=== PATIENT | female | born 1970 | race Two or more races ===

== ENCOUNTER 2019-09-27 22:51 | Emergency (ER) | payer MEDICARE, MEDICAID ==
[~2019-09-27] VITALS: Ht 167.6 cm; Wt 81.6 kg
[~2019-09-27 22:51] MED LIST: BUS10T PO; LEVE500T32 PO; OMEP20CA74 OR
[2019-09-28] MEDS ORDERED: ONDANSETRON HCL 4 MG/2 ML VIAL IV ONE (00:15)
[2019-09-28] MEDS ORDERED: HYDROmorphone HCL 2 MG/ML VL IV ONE (00:15)
[2019-09-28 01:01] LABS: Basophils # (auto) 0 10 ^3/uL (0-0.2); Basophils % (auto) 0.5 % (0.0-2.0); Eosinophils # (auto) 0.4 10 ^3/uL (0-0.8); Eosinophils % (auto) 4.3 % (0.0-7.0); Hematocrit 44.1 % (36.0-46.0); Hemoglobin 14.5 g/dL (12.2-16.2); Lymphocytes # (auto) 2.9 10 ^3/uL (0.4-5.4); Lymphocytes % (auto) 31.7 % (10.0-50.0); Mean Corpuscular Hemoglobin 29.4 pg (28.0-32.0); Mean Corpuscular Hgb Conc. 32.8 g/dL (32.0-36.0); Mean Corpuscular Volume 89.6 fL (80.0-100.0); Monocytes # (auto) 0.6 10 ^3/uL (0-1.3); Neutrophils # (auto) 5.2 10 ^3/uL (1.6-8.6); Neutrophils % (auto) 56.5 % (37.0-80.0); Nucleated Red Blood Cells % 0.1 %; Platelet Count (auto) 250 10^3/uL (140-450); Red Blood Cells 4.92 10^6/uL (4.0-5.20); White Blood Cell 9.2 10^3/uL (4.4-10.8)
[2019-09-28] MEDS ORDERED: LORazepam 2MG/ML-1ML VIAL IV ONE (01:15)
[2019-09-28 01:16] LABS: INR 0.96 (0.9-1.15); Partial Thromboplastin Time 25.4 sec (23.0-31.2)
[2019-09-28 01:39] LABS: Albumin 3.8 g/dL (3.4-5.0); Anion Gap 5 (5-15); Blood Urea Nitrogen 19 mg/dL (7-18); Calcium 8.4 mg/dL (8.5-10.1); Carbon Dioxide 25 mmol/L (21-32); Chloride 109 mmol/L (98-107); Glucose 101 mg/dL (74-106); Magnesium 2.5 mg/dL (1.6-2.6); Potassium 3.9 mmol/L (3.5-5.1); Sodium 139 mmol/L (136-145)
[2019-09-28 01:46] LABS: Alanine Aminotransferase 242 U/L (13-56); Alkaline Phosphatase 235 U/L (45-117); Aspartate Aminotransferase 120 U/L (15-37); BUN/Creatinine Ratio 27.9; Bilirubin, Total 0.5 mg/dL (0.2-1.0); Creatine Kinase IFCC 91 U/L (26-192); GFR African American 119 mL/min; GFR Non-African American 99 mL/min; Total Protein 7.7 g/dL (6.4-8.2)
[2019-09-28 02:46] LABS: Urine Bacteria FEW /hpf (None Seen); Urine Blood Negative /uL (Negative); Urine Mucus FEW (None Seen); Urine Specific Gravity 1.025 (1.001-1.035); Urine WBC 2 /hpf (0 - 5)
[2019-09-28 03:00] VITALS: BP 125/80
[2019-09-28] MEDS ORDERED: HYDROcodone-ACET 5/325MG TAB PO ONE (03:45)
== END 2019-09-28 04:22 | disposition home or self-care (01) ==
LOC: EDBD 22:51 → ER 22:53
DX: U07.1 COVID-19 (principal); K74.60 Unspecified cirrhosis of liver; R51 Headache; F12.10 Cannabis abuse, uncomplicated; I10 Essential (primary) hypertension; F41.9 Anxiety disorder, unspecified; Z90.710 Acquired absence of both cervix and uterus
CPT/HCPCS: 36415; 70450; 71045; 80053; 81001; 82550; 82728; 83735; 83880; 84484; 85025; 85379; 85610; 85730; 96374; 96375; 99285; C9803; J1170; J2405; U0003; 93005

== ENCOUNTER 2022-07-07 23:10 | Emergency (ER) | payer OTHER ==
[~2022-07-07] VITALS: Ht 154.9 cm; Wt 68.2 kg
[2022-07-07 23:20] VITALS: BP 181/115
== END 2022-07-08 01:15 | disposition left against medical advice (07) ==
LOC: EDBD 23:10 → ER 23:10
DX: I10 Essential (primary) hypertension (principal); Z53.21 Procedure and treatment not carried out due to patient leaving prior to being seen by health care provider

== ENCOUNTER 2024-12-25 10:53 | Emergency (ER) | payer OTHER ==
[~2024-12-25] VITALS: Ht 170.2 cm; Wt 82.0 kg
[~2024-12-25 10:53] MED LIST changes: -LEVE500T32 PO; +LEVE500T40 PO
[2024-12-25 11:20] VITALS: TEMP 98.3
[2024-12-25] MEDS: ONDANSETRON ODT 4 MG TAB PO ONE (11:22)
[2024-12-25 11:40] LABS: Hematocrit 43.7 % (36.0-46.0); Hemoglobin 14.4 g/dL (12.2-16.2); Mean Corpuscular Hemoglobin 28.7 pg (28.0-32.0); Mean Corpuscular Volume 87.1 fL (80.0-100.0); Nucleated Red Blood Cells % 0.1 %
[2024-12-25 11:42] LABS: Potassium 4.1 mmol/L (3.5-5.1); Sodium 142 mmol/L (136-145)
[2024-12-25 11:43] LABS: Anion Gap 9 (5-15); Carbon Dioxide 24 mmol/L (20-31)
[2024-12-25 11:44] LABS: Calcium 8.8 mg/dL (8.7-10.4)
[2024-12-25 11:49] LABS: BUN/Creatinine Ratio 16.4 (10.0-20.0); Blood Urea Nitrogen 11 mg/dL (9-23); Glucose 90 mg/dL (74-106)
[2024-12-25 11:50] LABS: Chloride 109 mmol/L (98-107)
--- NOTE | 2024-12-25 11:52 | ED.PDOC ---
History of Present Illness HPI Comments 54 y.o female presents to the ED for evaluation of elevated blood pressure. The patient reported being startled awake by a home break in today, after which she developed a headache and SOB. Her presenting BP was 220/160. She stated she took her prescribed HTN medication this morning. The patient denied any associated assault,LOC or physical trauma Chief Complaint: High Blood Pressure Time Seen by MD: 11:40 Primary Care Provider: saw Ornelas Notes: Nurses Notes, Medications, Allergies Allergies: Coded Allergies: Haloperidol (Unverified Allergy, Severe, 10/25/14) Lorazepam (Unverified Allergy, Severe, 10/25/14) Morphine (Verified Allergy, Unknown, 12/25/24) Home Meds Active Scripts Omeprazole (PRILOSEC) 20 Mg Cap, 40 MG OR BID, #60 MG Prov:BONIFACIO MARCUS MD 12/16/13 Reported Medications Levetiracetam (Keppra) 500 Mg Tab, 500 MG PO DAILY, TAB 10/25/14 Buspirone Hcl (Buspar) 10 Mg Tab, 10 MG PO PRN, TAB 02/23/13 Information Source: Patient Mode of Arrival: EMS Severity: Moderate Timing: Minutes Duration: Since onset Past Medical History PAST MEDICAL HISTORY: Anxiety, HTN, Liver, PUD, Seizures Surgical History: Hysterectomy CLIENT RETENTION SPECIALIST History: Endometriosis Family History Family History: Reviewed,noncontributory to illness Social History Smoker: Non-Smoker Alcohol: Heavy Drugs: Marijuana Lives In: Home Constitutional: denies: chills, diaphoresis, fatigue, fever, malaise, sweats, weakness, others EENTM: denies: blurred vision, double vision, ear bleeding, ear discharge, ear drainage, ear pain, ear ringing, eye pain, eye redness, hearing loss, mouth pain, mouth swelling, nasal discharge, nose bleeding, nose congestion, nose pain, photophobia, tearing, throat pain, throat swelling, voice changes, others Respiratory: reports: SOB at rest, shortness of breath, SOB with excertion; denies: cough, hemoptysis, orthopnea, stridor, wheezing, others Cardiovascular: denies: chest pain, dizzy spells, diaphoresis, Dyspnea on exertion, edema, irregular heart beat, left arm pain, lightheadedness, palpitations, PND, syncope, others Gastrointestinal: denies: abdomen distended, abdominal pain, blood streaked bowels, constipated, diarrhea, dysphagia, difficulty swallowing, hematemesis, melena, nausea, poor appetite, poor fluid intake, rectal bleeding, rectal pain, vomiting, others Genitourinary: denies: abnormal vagina bleeding, burning, dyspareunia, dysuria, flank pain, frequency, hematuria, incontinence, pain, , vagina discharge, urgency, others Neurological: reports: headache; denies: dizziness, fainting, left sided numbness, left sided weakness, numbness, paresthesia, pre-existing deficit, right sided numbness, right sided weakness, seizure, speech problems, tingling, tremors, weakness, others Musculoskeletal: denies: back pain, gout, joint pain, joint swelling, muscle pain, muscle stiffness, neck pain, others Integumetry: denies: bruises, change in color, change in hair/nails, dryness, laceration, lesions, lumps, rash, wounds, others Allergic/Immunocompromised: denies: Difficulty Healing, Frequent Infections, Hives, Itching, others Hematologic/Lymphatic: denies: anemia, blood clots, easy bleeding, easy bruising, swollen glands, others Endocrine: denies: excessive hunger, excessive sweating, excessive thirst, excessive urination, flushing, intolerance to cold, intolerance to heat, unexplained weight gain, unexplained weight loss, others Psychiatric: denies: anxiety, bipolar disorder, depression, hopeless, panic disorder, schizophrenia, sleepless, suicidal, others All Other Systems: Reviewed and Negative Physical Exam General Appearance: Moderate Distress HEENT: Normal ENT Inspection, Pharynx Normal, TMs Normal Neck: Full Range of Motion, Non-Tender, Normal, Normal Inspection Respiratory: Chest Non-Tender, Lungs Clear, No Accessory Muscle Use, No Respiratory Distress, Normal Breath Sounds Cardiovascular: No Edema, No JVD, No Murmur, No Gallop, Normal Peripheral Pulses, Regular Rate/Rhythm Breast Exam: Deferred Gastrointestinal: No Organomegaly, Non Tender, No Pulsatile Mass, Normal Bowel Sounds, Soft Genitalia: Deferred Pelvic: Deferred Rectal: Deferred Extremities: No calf tenderness, Normal capillary refill, Normal inspection, Normal range of motion, Non-tender, No pedal edema Musculoskeletal : Apperance: Normal Neurologic: Alert, stone carriage operator II-XII nml as Tested, No Motor Deficits, Normal Affect, Normal Mood, No Sensory Deficits Cerebellar Function: Normal Reflexes: Normal Skin: Dry, Normal Color, Warm Peripheral Pulses: 3+ Radial (R), 3+ Radial (L) Lymphatic: No Adenopathy Was a procedure done? Was a procedure done?: No Differential Dx Considerations may include: HTN essential, HTN accelerated X-Ray, Labs, Meds, VS Vital Signs Date Time Temp Pulse Resp B/P (MAP) Pulse Ox O2 Delivery O2 Flow Rate FiO2 12/25/24 12:50 50 20 136/76 (96) 99 12/25/24 12:50 136/76 12/25/24 11:21 191/103 12/25/24 11:20 98.3 64 18 191/103 (132) 94 98.3 12/25/24 11:20 Room Air* 0 21 12/25/24 11:06 98.3 87 18 220/160 98 98.3 Lab Test 12/25/24 11:12 Range/Units White Blood Count 6.3 4.4-10.8 10^3/uL Red Blood Count 5.01 4.0-5.20 10^6/uL Hemoglobin 14.4 12.2-16.2 g/dL Hematocrit 43.7 36.0-46.0 % Mean Corpuscular Volume 87.1 80.0-100.0 fL Mean Corpuscular Hemoglobin 28.7 28.0-32.0 pg Mean Corpuscular Hemoglobin Concent 32.9 32.0-36.0 g/dL Red Cell Distribution Width 14.2 11.8-14.3 % Platelet Count 237 140-450 10^3/uL Mean Platelet Volume 9.5 6.9-10.8 fL Neutrophils (%) (Auto) 55.3 37.0-80.0 % Lymphocytes (%) (Auto) 35.8 10.0-50.0 % Monocytes (%) (Auto) 4.6 0.0-12.0 % Eosinophils (%) (Auto) 4.0 0.0-7.0 % Basophils (%) (Auto) 0.3 0.0-2.0 % Neutrophils # (Auto) 3.5 1.6-8.6 10 ^3/uL Lymphocytes # (Auto) 2.3 0.4-5.4 10 ^3/uL Monocytes # (Auto) 0.3 0-1.3 10 ^3/uL Eosinophils # (Auto) 0.2 0-0.8 10 ^3/uL Basophils # (Auto) 0 0-0.2 10 ^3/uL Nucleated Red Blood Cells 0.1 % Sodium Level 142 136-145 mmol/L Potassium Level 4.1 3.5-5.1 mmol/L Chloride Level 109 H 98-107 mmol/L Carbon Dioxide Level 24 20-31 mmol/L Anion Gap 9 5-15 Blood Urea Nitrogen 11 9-23 mg/dL Creatinine 0.67 0.550-1.02 mg/dL Glomerular Filtration Rate Calc 105 >90 mL/min BUN/Creatinine Ratio 16.4 10.0-20.0 Serum Glucose 90 74-106 mg/dL Calcium Level 8.8 8.7-10.4 mg/dL Troponin I High Sensitivity < 3 L </=34 ng/L Current Medications Medications (Trade) Dose Ordered Sig/Sonja Route Start Time Stop Time Status Last Admin Clonidine HCl (Catapres Tablet) 0.2 mg ONCE ONCE PO 12/25/24 11:15 12/25/24 11:16 DC 12/25/24 11:21 Ondansetron HCl (Zofran Po) 4 mg ONCE ONCE PO 12/25/24 11:15 12/25/24 11:16 DC 12/25/24 11:22 Patient alert. She is anxious. Vitals stable. Answering all questions. Moving all extremities. No leg swelling. Blood pressure elevated. Was given clonidine. Was given Zofran. Cardiac marker within normal limits. Explained to the patient she will be admitted for further studies. Continue monitoring. Time of 1ST Reevaluation: 11:50 Reevaluation 1ST: Unchanged Patient Education/Counseling: Diagnosis, Treatment, Prognosis Family Education/Counseling: No Family Present SEPSIS Sepsis Screen Date sepsis recognized/suspect: Dec 25, 2024 Time Sepsis recognized/suspect: 1054 Recent Procedure: No On Antibiotic Therapy: No Respiratory Rate >20: No Heart Rate >90: No Temp<36 C (96.8 F) or >38.3 C: No SBP <90 or MAP <65 mmHG: No New Acute Mental Status Change: No Is the patient on CPAP, BIPAP,: No Physician Orders Urinalysis (12/25/24 11:02) Vital Signs Date Time Temp Pulse Resp B/P (MAP) Pulse Ox O2 Delivery O2 Flow Rate FiO2 12/25/24 12:50 50 20 136/76 (96) 99 12/25/24 12:50 136/76 12/25/24 11:21 191/103 12/25/24 11:20 98.3 64 18 191/103 (132) 94 98.3 12/25/24 11:20 Room Air* 0 21 12/25/24 11:06 98.3 87 18 220/160 98 98.3 Laboratory Tests Test 12/25/24 11:12 White Blood Count 6.3 10^3/uL (4.4-10.8) Medications Medications Dose Ordered Sig/Sonja Route Start Time Stop Time Status Last Admin Dose Admin Clonidine HCl 0.2 mg ONCE ONCE PO 12/25/24 11:15 12/25/24 11:16 DC 12/25/24 11:21 Ondansetron HCl 4 mg ONCE ONCE PO 12/25/24 11:15 12/25/24 11:16 DC 12/25/24 11:22 Departure 1 Departure Time of Disposition: 16:24 Impression: Primary Impression: Hypertensive urgency Additional Impression: Chest pain Qualified Codes: R07.9 - Chest pain, unspecified Disposition: ADMITTED INPATIENT Admit to: Med Surg Condition: Guarded Critical Care Note Critical Care Time?: No Stability Stability form required: No I personally scribed for MEAGHAN KIRBY MD ([email or web address]) on 12/25/24 at 11:52. Electronically submitted by Yina Nichole ([facility]). MEAGHAN KIRBY MD Dec 25, 2024 11:52
[2024-12-25 12:50] VITALS: BP 136/76; PULSE 50; RESP 20; O2SAT 99
== END 2024-12-25 13:57 | disposition left against medical advice (07) ==
LOC: EDBD 10:53 → ER 10:53
DX: I16.0 Hypertensive urgency (principal); R07.89 Other chest pain; F41.9 Anxiety disorder, unspecified; I10 Essential (primary) hypertension; F12.90 Cannabis use, unspecified, uncomplicated; Z79.899 Other long term (current) drug therapy; Z90.710 Acquired absence of both cervix and uterus; Z88.5 Allergy status to narcotic agent
CPT/HCPCS: 36415; 80048; 84484; 85025; 99283; Q0162